=== PATIENT | female | born 1990 | race Caucasian/White ===

== ENCOUNTER 2017-08-21 11:39 | Emergency (ER) | payer SELFPAY ==
[~2017-08-21] VITALS: Ht 175.3 cm; Wt 72.7 kg
[~2017-08-21 11:39] MED LIST: ASPIRIN E.C. 8181 MG PO; ATARAX 10MG10 MG/TAB PO; CEPHALEXIN500 M1 PO; CYMBALTA 60MG60 MG PO; DEPAKOTE ER 50500 MG PO; DESYREL DIVIDO150 M1 PO; LORTAB 5/500 501 TAB PO; MACROBID 1100 MG/CAP PO; NO HOME MEDICATIONS; NORCO 325 MG-51 TAB PO; PEPCID 20MG TAB20 MG PO; PRENATAL VITAMI1 TA5 PO; PRENATAL1 TA2 PO; TYLENOL 325MG325 MG PO; ZESTORETIC 12.51 TA1 PO
[2017-08-21 11:40] VITALS: BP 146/86; PULSE 80; TEMP 98.6
[2017-08-21] MEDS ORDERED: ULTRAM 50MG TAB50 MG PO (13:04)
== END 2017-08-21 13:11 | disposition home or self-care (01) ==
LOC: COL.ER 11:39
DX: M25.552 Pain in left hip (principal); F17.210 Nicotine dependence, cigarettes, uncomplicated; Z90.89 Acquired absence of other organs; Z90.49 Acquired absence of other specified parts of digestive tract; Z98.890 Other specified postprocedural states; W18.39XA Other fall on same level, initial encounter; Y92.149 Unspecified place in prison as the place of occurrence of the external cause
CPT/HCPCS: J1885